=== PATIENT | male | born 1930 | race Caucasian/White ===

== ENCOUNTER 2016-09-11 22:35 | Outpatient (CLI) | END 2016-09-11 22:36 | disposition home or self-care (01) | LOC: AMBL 22:35 | PROVIDERS: ATTEND Emergency Medicine | DX: R06.02 Shortness of breath (principal); R09.89 Other specified symptoms and signs involving the circulatory and respiratory systems; J44.9 Chronic obstructive pulmonary disease, unspecified; G71.0 Muscular dystrophy; Z93.3 Colostomy status ==

== ENCOUNTER 2017-02-27 12:45 | Outpatient (CLI) | END 2017-02-27 12:46 | disposition home or self-care (01) | LOC: AMBL 12:45 | PROVIDERS: ATTEND Emergency Medicine | DX: R06.02 Shortness of breath (principal); R05 Cough; R09.89 Other specified symptoms and signs involving the circulatory and respiratory systems; I50.9 Heart failure, unspecified ==